=== PATIENT | male | born 1985 | race Caucasian/White ===

== ENCOUNTER → 2019-02-07 | Outpatient (CLI) | payer BC ==
--- NOTE | 2019-02-07 11:29 | CT ---
EXAMINATION TYPE: CT brain wo/w con DATE OF EXAM: 02/07/2019 COMPARISON: NONE HISTORY: near syncope/dizziness/lightheaded x [address] DLP: 2166 mGycm Automated Exposure Control for Dose Reduction was Utilized. TECHNIQUE: CT scan of the head is performed with IV contrast. CT scan of the head is performed witho ut and with with IV Contrast, patient injected with 100 mL of Isovue 300. FINDINGS: Noncontrast images show no acute intracranial hemorrhage or midline shift. The ventricles and sulci are within normal limits in size. Postcontrast images show no suspicious enh ancing intraparenchymal mass. However there is abnormal linear enhancement within the right parietal lobe in 2 locations that could simply represent prominence venous drainage or arterial venous malform ations. Enhanced MRI with GRE sequence could evaluate for susceptibility artifact and nidus of and ar teriovenous malformation. No intranidal hemorrhage is seen on the noncontrast images. The globes are intact and the visualized sinuses are clear. Mild leftward nasal septal deviation is present. IMPRESSION: 1. No evidence of intracranial mass effect, intracranial hemorrhage, or midline shift. 2. Linear enhancement multifocally within the right parietal lobe could represent prominent venous dr ainage or arterial venous malformations. As discussed above enhanced MRI with GRE sequence could eval uate for susceptibility artifact and nidus of and arteriovenous malformation. No intranidal hemorrhag e is seen on the noncontrast images.
== END | disposition home or self-care (01) ==
LOC: RADCTMAIN 10:26
PROVIDERS: ATTEND Physician Assistant
DX: Q28.2 Arteriovenous malformation of cerebral vessels (principal)
CPT/HCPCS: 70470; Q9967

== ENCOUNTER → 2019-02-10 | Outpatient (CLI) | payer BC ==
--- NOTE | 2019-02-10 09:06 | MR ---
EXAMINATION TYPE: MR brain wo/w con DATE OF EXAM: 02/10/2019 COMPARISON: 02/07/2019 HISTORY: Syncope and collapse / Abnormal CT TECHNIQUE: Multiplanar, multisequence images of the brain and brainstem is performed without and with IV contras t, utilizing 10 mL intravenous Gadavist . FINDINGS: Diffusion weighted images demonstrate no evidence of a recent infarct or other diffusion ab normality. There is no extra-axial fluid collection or significant white matter signal abnormality. The ventricular system and cisternal spaces are normal in size and appearance. The brain volume is age appropriate. Midline structures demonstrate normal morphology. The craniocervical junction appears within normal limits. The dural venous sinuses appear patent. There is leftward nasal septal deviation. The visuali zed sinuses are clear and the globes are intact. Prominent venous sinus drainage in the right parietal lobe drains into a small developmental venous a nomaly within the deep white matter. Note communication with the arterial system is seen nor nidus. N o sizable area of blooming artifact is seen on GRE sequences. The second area of abnormal enhancement in the right temporal lobe also relates to prominent venous sinus drainage without thrombus. No asso ciated developmental venous anomaly is seen within this prominent vein. Post contrast images demonstr ate no other abnormal enhancement. IMPRESSION: 1. The previously seen abnormal area of linear enhancement in the right parietal lobe relates to prom inent venous sinus drainage into a small developmental venous anomaly. 2. No acute infarct, midline shift or mass effect.
== END | disposition home or self-care (01) ==
LOC: RADMRIMAIN 08:11
PROVIDERS: ATTEND Family Medicine
DX: R90.89 Other abnormal findings on diagnostic imaging of central nervous system (principal); Q28.3 Other malformations of cerebral vessels
CPT/HCPCS: 70553; A9585

== ENCOUNTER → 2020-08-27 | Outpatient (CLI) | payer BC ==
--- NOTE | 2020-08-27 13:05 | US ---
EXAMINATION TYPE: US kidneys/renal and bladder DATE OF EXAM: 08/27/2020 COMPARISON: NONE CLINICAL HISTORY: Z87.442 Personal hx of kidney stones. Intermittent left flank pain; prior left jerrod l stone 2019 EXAM MEASUREMENTS: Right Kidney: 9.7 x 4.7 x 4.2 cm Left Kidney: 9.7 x 5.7 x 5.1 cm Post Void Residual Volume: 12.2 mL Right Kidney: No hydronephrosis or masses seen Left Kidney: No hydronephrosis or masses seen Bladder: wnl Bilateral Jets seen: yes Normal Post Void Residual: yes There is no evidence for hydronephrosis at this point in time. No nephrolithiasis is seen. No kyrie s are identified. The urinary bladder is anechoic. Bilateral ureteral jets are seen. IMPRESSION: Normal renal ultrasound
== END | disposition home or self-care (01) ==
LOC: RADUSWWP 11:52
PROVIDERS: ATTEND Internal Medicine Geriatric Medicine
DX: Z09 Encounter for follow-up examination after completed treatment for conditions other than malignant neoplasm (principal); Z87.442 Personal history of urinary calculi
CPT/HCPCS: 76770